=== PATIENT | male | born 1975 | race Caucasian/White ===

== ENCOUNTER → 2020-09-15 09:06 | Outpatient (BNVA) | payer OTHER, SELFPAY | PROVIDERS: PCP Internal Medicine; Referring Provider Internal Medicine; Visit Provider Surgery Vascular Surgery | DX: I83.11 Varicose veins of right lower extremity with inflammation (principal) | CPT/HCPCS: 99203 ==

== ENCOUNTER 2020-11-24 12:57 | Outpatient (REF) | payer OTHER, SELFPAY ==
--- NOTE | 2020-11-24 13:04 | US_ITS ---
EXAMINATION: RIGHT and LEFT LOWER EXTREMITY VENOUS ULTRASOUND (Reflux Exam) CLINICAL INDICATION: leg pain and varicose veins. COMPARISON: None. TECHNIQUE: Color flow triplex imaging and compression Doppler was performed to evaluate both the deep and the superficial systems bilaterally. To evaluate the superficial system, the examination was performed in the upright position. Color-flow Doppler ultrasound and compression ultrasound were utilized. In addition, maneuvers were utilized to demonstrate reflux. FINDINGS: 1. DEEP VENOUS ULTRASOUND OF THE RIGHT LOWER EXTREMITY: Respiratory variation, normal compression and augmented flow are noted in the right common femoral vein as well as the right popliteal vein and there is no evidence of deep venous thrombosis at these locations. There is no evidence of reflux in the deep system in either the common femoral vein or the popliteal vein. There is no evidence of a Zamora's cyst. 2. SUPERFICIAL ULTRASOUND WITH DOPPLER OF RIGHT LOWER EXTREMITY: The right great saphenous vein at the saphenofemoral junction measures 1 mm, at the mid thigh 4 mm, ahjxc-nja-uqov 7 mm, coeum-son-jrvl 6 mm, at mid calf 5 mm and at the ankle measures 6 mm. There is right greater saphenous vein reflux measuring maximum 2.9 seconds above the knee. The right small saphenous vein measures 3 mm and shows no reflux. There are varicosities in the thigh and calf that communicate with the right greater saphenous vein, largest measuring 4 mm. These do not demonstrate reflux. There are perforating there is a helicopter technician in the mid thigh that measures 4 mm and demonstrates 1 seconds reflux. There is a helicopter technician in the proximal calf that measures 3 mm and does not demonstrate reflux. 3. DEEP VENOUS ULTRASOUND OF THE LEFT LOWER EXTREMITY: Respiratory variation, normal compression and augmented flow are noted in the left common femoral vein as well as the left popliteal vein and there is no evidence of deep venous thrombosis at these locations. There is no evidence of reflux in the deep system in either the common femoral vein or the popliteal vein. . There is no evidence of a Zamora's cyst. 4. SUPERFICIAL ULTRASOUND WITH DOPPLER OF LEFT LOWER EXTREMITY: Left great saphenous vein at the saphenofemoral junction measures 9 mm, at the mid thigh 3 mm, jqnit-qrk-sybb 3 mm, vypmc-zkt-tmnm 3 mm, at mid calf 3 mm and at the ankle measures 3 mm. There is no reflux demonstrated in the left great saphenous vein. There is an accessory lateral greater saphenous vein that measures 3 to 4 mm and does not demonstrate reflux The left small saphenous vein measures 3-4 mm and shows no reflux. There are areas of wall thickening and increased echogenicity in the left small saphenous vein questionable for changes related to old thrombophlebitis. No acute thrombus is seen. There are varicosities at the knee and calf that measures maximum 3 mm do not demonstrate reflux. There is a helicopter technician in the mid thigh that measures 3 mm and does not demonstrate reflux. There is a helicopter technician in the proximal calf that measures 2 mm and does not demonstrate reflux. There is a prominent left inguinal lymph node. This demonstrates normal ultrasound morphology. This measures 4.1 x 0.9 x 3.4 cm sagittal AP and transverse dimension. US/US venous duplex LE BI IMPRESSION: 1. No evidence of reflux or thrombus in the common femoral veins or popliteal veins bilaterally. 2. Right greater saphenous vein reflux. Reflux in a helicopter technician in the mid right thigh measuring 1 second. No left saphenous vein reflux seen.
== END 2020-11-24 12:58 | disposition home or self-care (01) ==
LOC: HO.US 12:57
PROVIDERS: Visit Provider Surgery Vascular Surgery
DX: I83.893 Varicose veins of bilateral lower extremities with other complications (principal); I83.11 Varicose veins of right lower extremity with inflammation
CPT/HCPCS: 93970; 99212

== ENCOUNTER → 2020-11-26 09:21 | Outpatient (BNVA) | payer OTHER, SELFPAY | PROVIDERS: PCP Internal Medicine; Visit Provider Surgery Vascular Surgery | DX: I83.11 Varicose veins of right lower extremity with inflammation (principal) | CPT/HCPCS: 99212 ==

== ENCOUNTER → 2021-04-30 09:29 | Outpatient (BNVA) | payer OTHER, SELFPAY | PROVIDERS: PCP Internal Medicine; Visit Provider Surgery Vascular Surgery | DX: I83.11 Varicose veins of right lower extremity with inflammation (principal) | CPT/HCPCS: 36482 ==

== ENCOUNTER 2021-05-03 11:40 | Outpatient (REF) | payer OTHER, SELFPAY ==
--- NOTE | ~2021-05-03 | US_ITS ---
EXAMINATION: US VENOUS WITH DOPPLER LOWER EXTREMITY, RIGHT CLINICAL INFORMATION: Status post VenaSeal. COMPARISON: Bilateral venous ultrasound duplex lower extremities. TECHNIQUE: Ultrasound of the deep veins is performed from the hip to the calf with compression sonography and color and pulse Doppler assessment. Spectral analysis with color-flow imaging is performed. FINDINGS: There is a normal flow seen in the right common femoral vein. Status post VenaSeal. There is no flow seen in the right greater saphenous femoral vein measuring approximately 3.56 cm long segment. The right superficial femoral proximal, mid and distal veins are patent. The right popliteal, right posterior tibial and the calf veins are patent with normal respiratory variation visualized. The left common femoral vein is patent, as well. US/US venous duplex LE RT IMPRESSION: No DVT seen in the right lower extremity venous system. Status post VenaSeal, there is no flow visualized in the right greater saphenous vein approximately 3.56 cm long segment.
== END 2021-05-03 11:41 | disposition home or self-care (01) ==
LOC: HO.HMGCX 11:40
PROVIDERS: PCP Internal Medicine; Visit Provider Surgery Vascular Surgery
DX: M79.604 Pain in right leg (principal)
CPT/HCPCS: 93971

== ENCOUNTER → 2021-05-10 15:31 | Outpatient (BNVA) | payer OTHER, SELFPAY | PROVIDERS: PCP Internal Medicine; Visit Provider Surgery Vascular Surgery | DX: I83.11 Varicose veins of right lower extremity with inflammation (principal) | CPT/HCPCS: 99212 ==

== ENCOUNTER → 2021-12-30 14:29 | Outpatient (BNVA) | payer OTHER, SELFPAY | PROVIDERS: PCP Internal Medicine; Referring Provider Internal Medicine; Visit Provider Surgery | DX: K40.90 Unilateral inguinal hernia, without obstruction or gangrene, not specified as recurrent (principal) | CPT/HCPCS: 99212 ==

== ENCOUNTER 2022-01-12 11:07 | Day surgery (SDC) | payer OTHER, SELFPAY ==
--- NOTE | 2022-01-11 14:33 | P.CONAN_ITS ---
Documented by User: Myriam Warren NP 01/11/22 14:39 HPI - Anesthesia Eval Consult details Narrative: 46yo M for Left Hernia Repair Inguinal with Mesh +ETOH per PCP [facility] Active Problems Active Problems: All Active Problems (Updated 01/04/22 @ 12:57 by Maria Elena Galicia MD) Erectile dysfunction (Acute) Encounter for general adult medical examination with abnormal findings (Acute) Obesity due to excess calories (Acute) Alcoholism (Acute) Hypertension, essential (Acute) DMII (diabetes mellitus, type 2) (Acute) Left inguinal hernia (Acute) Varicose veins of right lower extremity with inflammation (Acute) Past Medical History Medical History Diabetes Hypertension Family History Family History Maternal Grandfather History of colon cancer Maternal Grandmother History of breast cancer Surgical History Surgical History History of appendectomy (~1983) Social History Social History (Updated 01/12/22 @ 12:47 by Verenice Moise MD) Housing: House Alcohol intake: current Alcohol intake frequency: 3 or more drinks per day Patient Tobacco Use Status: Never used Tobacco e-Cigarette/Vaping Use: Never Used Use of substances other than those prescribed or required for medical reasons: No Substance Use Type: Marijuana Last Used Substance: Days (ago) Are you DNR?: No Advance Directives: No Advance Directives Information Provided: No Recently lost weight without trying: No Nutrition Risks: No Nutritional Risk Current occupational status: unemployed Meds Allergies Allergy/AdvReac Type Severity Reaction Status Date / Time No Known Allergies Allergy Verified 01/04/22 12:35 [No Known Allergies*] Exam Exam Date and Time: January 11, 2022 1433 Pertinent Lab Results Pertinent Lab Results: 12/2021 A1C = 8.9% Assessment and Plan Assessment Anesthesia Assessment: Chart Reviewed Documented by User: Verenice Moise MD 01/12/22 12:50 [facility] Active Problems Active Problems: All Active Problems (Updated 01/04/22 @ 12:57 by Maria Elena Galicia MD) Erectile dysfunction (Acute) Encounter for general adult medical examination with abnormal findings (Acute) Obesity due to excess calories (Acute) Alcoholism (Acute) Hypertension, essential (Acute) DMII (diabetes mellitus, type 2) (Acute) Left inguinal hernia (Acute) Varicose veins of right lower extremity with inflammation (Acute) Snoring. Never had sleep study Past Medical History Medical History Diabetes Hypertension Family History Family History Maternal Grandfather History of colon cancer Maternal Grandmother History of breast cancer Family history of problems with anesthesia: No Surgical History Surgical History History of appendectomy (~1983) History of Problems with Anesthesia: No Social History Social History (Updated 01/12/22 @ 12:47 by Verenice Moise MD) Housing: House Alcohol intake: current Alcohol intake frequency: 3 or more drinks per day Patient Tobacco Use Status: Never used Tobacco e-Cigarette/Vaping Use: Never Used Use of substances other than those prescribed or required for medical reasons: No Substance Use Type: Marijuana Last Used Substance: Days (ago) Are you DNR?: No Advance Directives: No Advance Directives Information Provided: No Recently lost weight without trying: No Nutrition Risks: No Nutritional Risk Current occupational status: unemployed Meds Allergies Allergy/AdvReac Type Severity Reaction Status Date / Time No Known Allergies Allergy Verified 01/04/22 12:35 [No Known Allergies*] Exam Height,Weight and Vital Signs: Height 6 ft Weight 115.666 kg Vital Signs Temp Pulse Resp BP Pulse Ox 01/12/22 11:16 97.2 F 62 16 133/90 H 97 Pertinent Lab Results Pertinent Lab Results: 12/2021 A1C = 8.9% Lab Results 01/12/22 01/12/22 01/12/22 Range/Units 11:23 11:23 11:44 WBC 8.9 (4.8-10.8) X10*3/uL RBC 5.31 (4.60-5.80) X10*6/uL Hgb 16.4 (14.0-18.0) g/dl Hct 46.3 (42.0-52.0) % MCV 87.2 (80.0-98.0) fL MCH 30.9 (27.0-33.0) pg MCHC 35.4 (31.0-36.0) g/dl RDW 12.7 (11.0-16.0) % Plt Count 255 (160-400) X10*3/uL MPV 8.7 L (9.4-12.4) fL Absolute Nucleated RBC 0.000 (0.0-0.012) X10*3/uL Nucleated RBC % (auto) 0.0 (0.0-0.2) /100WBC Sodium 136 (135-145) mmol/L Potassium 4.6 (3.3-5.1) mmol/L Chloride 101 (96-108) mmol/L Carbon Dioxide 26 (22-29) mmol/L Anion Gap 14 (12-20) BUN 10 (9-16) mg/dL Creatinine 0.83 (0.5-1.4) mg/dL Estim Creat Clear Calc 144.4 Estimated GFR > 60 POC Glucose 168 H (60-115) mg/dL Fasting Glucose 178 H (60-99) mg/dL Calcium 10.0 (8.4-10.2) mg/dL Total Bilirubin 2.0 H (0.0-1.0) mg/dL AST 28 (5-37) U/L ALT 43 H (0-40) U/L Alkaline Phosphatase 61 (39-117) U/L Total Protein 7.6 (6.5-8.0) g/dL Albumin 4.4 (3.5-5.0) g/dL Airway Mallampati Class: III TM Dist: >3cm Neck ROM: Full Loose/Missing/Broken Teeth: Yes (Some broken. Some missing ) Heart: RRR Lungs: CTAB Assessment and Plan Assessment Anesthesia Assessment: Anesthesia Plan Discussed Final Anesthetic Review Family History of Problems with Anesthesia: No History of Problems with Anesthesia: No NPO: Yes ASA Class: III Final Preanesthetic Review: No Changes in Pt Med Stat, Meds/Allgs Chart Reviewed, Consent Obtained/Reviewed and Anes Risks/Benef Reviewed Patient Risk: Intermediate Procedure Risk: Low Assessment/Block/Sedation in SS: Assess/Block/Sedation-SS Anesthetic Plan Anesthetic Plan: GA Disposition: Standard PACU
[2022-01-12] VITALS (16 sets, daily range): BP systolic 90–133; BP diastolic 52–90; PULSE 54–76; RESP 10–18; TEMP 36.2–36.3; O2SAT 94–100; BMI 34.5
[2022-01-12] MEDS: Lactated Ringers 1,000 ML 100 ML IVCONT (11:35)
[2022-01-12 11:37] LABS: Hematocrit 46.3 % (42.0-52.0); Hemoglobin 16.4 g/dl (14.0-18.0); Mean Corpuscular HGB Conc 35.4 g/dl (31.0-36.0); Mean Corpuscular Hemoglobin 30.9 pg (27.0-33.0); Mean Corpuscular Volume 87.2 fL (80.0-98.0); Mean Platelet Volume 8.7 fL (9.4-12.4); Platelet Count 255 X10*3/uL (160-400); Red Blood Count 5.31 X10*6/uL (4.60-5.80); Red Cell Distribution Width 12.7 % (11.0-16.0); White Blood Count 8.9 X10*3/uL (4.8-10.8)
[2022-01-12 11:47] LABS: Glucose, Whole Blood 168 mg/dL (60-115)
[2022-01-12 11:50] LABS: Alanine Aminotransferase 43 U/L (0-40); Albumin Level 4.4 g/dL (3.5-5.0); Alkaline Phosphatase 61 U/L (39-117); Anion Gap 14 (12-20); Aspartate Amino Transferase 28 U/L (5-37); Blood Urea Nitrogen 10 mg/dL (9-16); Carbon Dioxide 26 mmol/L (22-29); Chloride 101 mmol/L (96-108); Creatinine Clr Calc Pharmacy 144.4; Estimated Glomerular Filt Rate > 60; Glucose Fasting 178 mg/dL (60-99); Potassium 4.6 mmol/L (3.3-5.1); Sodium 136 mmol/L (135-145); Total Protein 7.6 g/dL (6.5-8.0)
--- NOTE | 2022-01-12 12:28 | MHC.SHP ---
Pre-Procedural Eval Section A Date of Service: 01/12/22 The patient is an INPATIENT: No Changes since office visit: Yes Patient answered all questions; No Cold of Flu in the past 2 weeks, No New Medical Problems and No Changes in Medication The History & Physical has been completed within 30 days and I have reviewed it.: Yes Section B Chief Complaint: Left Inguinal Hernia Allergies: Allergies Allergy/AdvReac Type Severity Reaction Status Date / Time No Known Allergies Allergy Verified 01/04/22 12:35 [No Known Allergies*] Plan Diagnosis/Plan: Unchanged I have reviewed the history and physical and performed a pertinent physical examination on my patient. No changes have occurred unless specified.
--- NOTE | 2022-01-12 14:19 | P.OP_ITS ---
Operative Note Operative Note Date of Service: 01/12/22 Narrative: Preoperative diagnosis:Left inguinal hernia Postoperative diagnosis: same Procedure: repair of left inguinal hernia Surgeon: Gigi Rachel MD Tobacco Stripping Machine Operator: Myriam Soliman PA-C Anesthesia: general LMA Indications for procedure: 46-year-old male with a long history of a left inguinal hernia which is increasing in size and causing discomfort Operative findings: very large sliding direct left inguinal hernia with complete disruption of the inguinal floor. Large extended PHS mesh used Specimen:none Estimated blood loss:20 mls Complications:none Procedure details: patient was brought to the OR and placed in a supine position. After administering general anesthesia the patient's abdomen was prepped with ChloraPrep and draped in a sterile fashion. A surgical time-out was called the consent confirmed. Patient received preoperative antibiotics and Venodyne boots were in place. Local anesthesia consisting of 0.5% Sensorcaine was infiltrated over the left inguinal ligament. An incision was made with the scalpel carried down through subcutaneous tissue. Incision was carried down to the extenal oblique aponurosis. Additional local was infiltrated below the external oblique aponeurosis. The aponeurosis was incised with a scalpel wide with the Metzenbaum scissors. Spermatic cord was very large due to a very large scrotal hernia. The cord was unable to be dissected from the surrounding i nguinal canal due to its size therefore the fibers of the cremasteric muscle were and the hernia sac free from the surrounding cord vessels. The vas deferens was identified and preserved. A sliding hernia was noted within the hernia sac. This was able to be reduced. The patient was subsequently found to have a very large direct inguinal hernia with total disruption of the abdominal floor at the inguinal canal. A large extended PHS mesh was then obtained. The circular underlay was placed into the large defect in the inguinal floor. The mesh was then deployed within the preperitoneal space. The overlay was then secured to the pubic tubercle conjoined tendon, shelving edge of the inguinal ligament and reflected edge of the external oblique aponeurosis laterally. A slit was made in the mesh in the mesh wrapped around the spermatic cord at the internal ring. This was then secured to the shelving edge of the inguinal ligament using the 0 Polysorb suture. Wounds were irrigated with saline solution and suctioned dry. External oblique aponeurosis was then closed using a running 2 0 Polysorb suture. Louie's fascia and dermis reapproximated using interrupted 3-0 Polysorb sutures. Skin was closed using a running subcuticular 4-0 Polysorb suture. Patient tolerated the procedure well. Sponge, instrument, and needle counts were reported as correct. Patient was transferred to PACU in stable condition.
[2022-01-12] MEDS: fentaNYL citrate/PF 100 MCG/2 ML VIAL 25 MCG IVPUSH (15:04)
[2022-01-12] MEDS: oxyCODONE HCl Immed Release 5 MG TABLET 10 MG PO (15:07)
== END 2022-01-12 17:09 | disposition home or self-care (01) ==
PROVIDERS: Nurse Practitioner; PCP Internal Medicine; Visit Provider Surgery
PROC: (CPT 49525; principal; 2022-01-12 12:30)
DX: K40.90 Unilateral inguinal hernia, without obstruction or gangrene, not specified as recurrent (principal); I10 Essential (primary) hypertension; E11.9 Type 2 diabetes mellitus without complications; Z79.84 Long term (current) use of oral hypoglycemic drugs; Z79.899 Other long term (current) drug therapy
CPT/HCPCS: 49525; 36415; 80053; 82947; 85027; C1781; J0690; J2250; J2405; J2550; J2765; J3010

== ENCOUNTER → 2022-01-18 13:47 | Outpatient (BNVA) | payer OTHER, SELFPAY | PROVIDERS: PCP Internal Medicine; Referring Provider Internal Medicine; Visit Provider Surgery | DX: Z48.815 Encounter for surgical aftercare following surgery on the digestive system (principal); Z87.19 Personal history of other diseases of the digestive system | CPT/HCPCS: 99212 ==

== ENCOUNTER 2023-07-11 11:47 | Outpatient (AMB) | payer OTHER, SELFPAY ==
[2023-07-11 11:54] VITALS: BP 162/96; PULSE 85; O2SAT 97; BMI 34.3
--- NOTE | 2023-07-11 11:54 | MHC.PC.OV ---
Vital Signs 07/11/23 11:54 Height 6 ft Weight 253 lb 2 oz BMI 34.3 BP 162/96 H Blood Pressure Location Lt brachial Position Sitting Pulse 85 Pulse Source Pulse Oximeter Pulse Oximetry (%) 97 Oxygen Delivery Method Room Air Intake Visit Reasons: Med Rifill Allergies No Known Allergies [No Known Allergies*] Allergy (Verified 07/11/23 11:55) Medication List - Last Reconciled 07/11/23 by Maria Elena Galicia MD amlodipine 5 mg PO DAILY 90 days atenolol 100 mg PO DAILY 90 days glipizide-metformin 5-500 mg 1 tab PO DAILY 90 days Tobacco use date assessed: 07/11/23 Dental Screening Dental Screen Date: 07/11/23 Did you have a dental visit in the last 12 months?: Yes Did you have a dental problem in the last 6 months where you did not have access to dental care?: No Was dental information given to patient?: No HPI Med Rifill HPI Details Patient is 47-year-old gentleman who was seen more than a year ago Came in today to have medication refills. Patient was supposed to be on amlodipine 5 mg and atenolol 100 mg for blood pressure He has not taken his medications in over 2 months. His blood pressure is 162/96 There is no headache no blurring of vision no chest pain or shortness of breath. Diabetes mellitus patient was on glipizide metformin 5-500 mg once a day which he has stop taking 2 months ago as well His hemoglobin A1c is 11.2 today. I am increasing the dose to 2 tablets in the morning and 212 hours later, medication refill sent Labs to be done fasting Patient need to lose weight his BMI is 34.3. We will be sending Glucometer for the patient he is to start taking sugar readings 1st thing in the morning and keep a log. Follow-up 3 months for labs and sugar. [facility] Medical History Diabetes Hypertension Surgical History History of appendectomy (~1983) Family History Maternal Grandfather History of colon cancer Maternal Grandmother History of breast cancer Social History Housing: House Alcohol intake: current Alcohol intake frequency: 3 or more drinks per day Patient Tobacco Use Status: Never used Tobacco e-Cigarette/Vaping Use: Never Used Substance Use Type: Marijuana Current occupational status: unemployed Cognitive needs: No Hearing needs: No Vision needs: Yes Questionnaire PHQ-9 Over the last 2 weeks, how often have you been bothered by any of the following problems? 1. Little interest or pleasure in doing things: not at all 2. Feeling down, depressed, or hopeless: not at all 3. Trouble falling or staying asleep, or sleeping too much: not at all 4. Feeling tired or having little energy: not at all 5. Poor appetite or overeating: not at all 6. Feeling bad about yourself - or that you are a failure or have let yourself or your family down: not at all 7. Trouble concentrating on things, such as reading the newspaper or watching television: not at all 8. Moving or speaking so slowly that other people could have noticed. Or the opposite - being so fidgety or restless that you have been moving around a lot more than usual: not at all 9. Thoughts that you would be better off or of hurting yourself in some way: not at all Total score: 0 Depression Screening Interpretation: Negative 73020 - PHQ-9 Billing: Yes Source: Developed by Drs. Den Jalloh, Cynthia Shelton, Rudi Dallas and colleagues, with an educational yanni from [employer]. Thrive Questionnaire Date Thrive assessed: 07/11/23 I am a: Patient What is your living situation today?: I have a steady place to live Within the past 12 months, did the food you bought not last and you didn't have the money to get more?: Sometimes True Within the past 12 months, did you worry whether your food would run out before you got money to buy more?: I choose not to answer this question Do you have trouble paying for medicines?: No Do you have trouble getting transportation to medical appointments?: No Do you have trouble paying your heating and electricity bill?: No Do you have trouble taking care of your child, family member or friend?: No Do you have trouble with day-to-day activities such as bathing, preparing meals, shopping, managing finances, etc.?: No Are you currently unemployed and looking for a job?: No Are you interested in more education?: No AUDIT C Alcohol Use Questionnaire (AUDIT-C) 1. How often do you have a drink containing alcohol?: 4 or more times a week 2. How many drinks containing alcohol do you have on a typical day when you are drinking?: 3 or 4 3. How often do you have six or more drinks on one occasion?: Never Total Score: 5 Score Reviewed/Action Taken: Yes CHRIS-7 AMB Questionnaire CHRIS-7 Date CHRIS - 7 assessed: 07/11/23 Feeling nervous, anxious, or on edge: 0 = Not at all Not being able to stop or control worryin = Not at all Worrying too much about different things: 0 = Not at all Trouble relaxin = Not at all Being so restless that it is hard to sit still: 0 = Not at all Becoming easily annoyed or irritable: 0 = Not at all Feeling afraid as if something awful might happen: 0 = Not at all Total CHRIS-7 score (0-4 normal; 5-9 mild; 10-14 moderate; 15-21 severe): 0 Source: Developed by Drs. Den Jalloh, Cynthia Shelton, Rudi Dallas and colleagues, with an educational yanni from [employer]. CHRIS-7 Assessment Billing CHRIS-7 Assessment Tool: CHRIS-7 Assessment 91794 Review of Systems Const Denies chills and Denies fever(s) ENT Denies epistaxis and Denies nasal discharge Card Denies chest pain Resp Denies chest congestion, Denies cough and Denies hemoptysis GI Denies diarrhea and Denies nausea Skin/Breast Denies rash Neuro Reports no additional complaints Psych Reports no additional complaints Endo Reports no additional complaints Physical exam (Primary Care) Vital Signs: Last Vital Signs Pulse 85 07/11/23 11:54 BP 162/96 H 07/11/23 11:54 Pulse Ox 97 07/11/23 11:54 Oxygen Delivery Method Room Air 07/11/23 11:54 BMI result Body Mass Index 34.3 Tobacco/Smoking Status: Tobacco use Status Tobacco use date assessed 07/11/23 07/11/23 11:56 Patient Tobacco Use Status Never used Tobacco 07/11/23 11:56 e-Cigarette/Vaping Use Never Used 07/11/23 11:56 PHQ-9: PHQ-9 Score PHQ-9: Total score 0 07/11/23 12:09 Depression Screening Interpretation: Negative Thrive Assessment: Date of Thrive Assessment Date Thrive assessed 07/11/23 07/11/23 12:08 Const General: cooperative, comfortable and no acute distress Orientation/consciousness: patient oriented x3 HENMT Head: Yes normocephalic Eyes General: appearance normal, both eyes and all related structures Neck Neck: Yes supple Resp Effort & Inspection: normal respiratory effort, no cough and no stridor Cardio Rhythm: regular rhythm Heart sounds: S1 normal heart sound present and S2 normal heart sound present Skin General skin exam: turgor normal Neuro General: patient oriented x3, tone normal and moves all extremities Extrem Right lower extremity: no edema Left lower extremity: no edema Results AMB Hemoglobin A1c AMB Hemoglobin A1c 11.2 % Last Edit by Pankaj Rob CMA on 07/11/23 12:03 Results Reviewed Results Reviewed: Laboratory Last Values Hgb A1c (Clinic) 11.2 % (4.0-6.0) H 07/11/23 12:01 Assessment and Plan Assessment & Plan (1) Uncontrolled diabetes mellitus: (2) Hypertension, essential: Code(s): I10 - Essential (primary) hypertension (3) Varicose veins of right lower extremity with inflammation: Code(s): I83.11 - Varicose veins of right lower extremity with inflammation (4) Obesity due to excess calories: Code(s): E66.09 - Other obesity due to excess calories Plan Patient is 47-year-old gentleman who was seen more than a year ago Came in today to have medication refills. Patient was supposed to be on amlodipine 5 mg and atenolol 100 mg for blood pressure He has not taken his medications in over 2 months. His blood pressure is 162/96 There is no headache no blurring of vision no chest pain or shortness of breath. Diabetes mellitus patient was on glipizide metformin 5-500 mg once a day which he has stop taking 2 months ago as well His hemoglobin A1c is 11.2 today. I am increasing the dose to 2 tablets in the morning and 212 hours later, medication refill sent Labs to be done fasting Patient need to lose weight his BMI is 34.3. We will be sending Glucometer for the patient he is to start taking sugar readings 1st thing in the morning and keep a log. Follow-up 3 months for labs and sugar. Orders: Orders Complete Blood Count Auto Diff Today E66.09 - Other obesity due to excess calories, I10 - Essential (primary) hypertension, I83.11 - Varicose veins of right lower extremity with inflammation Comprehensive [place]. Panel Fast Today E66.09 - Other obesity due to excess calories, I10 - Essential (primary) hypertension, I83.11 - Varicose veins of right lower extremity with inflammation Lipid Panel Today E66.09 - Other obesity due to excess calories, I10 - Essential (primary) hypertension, I83.11 - Varicose veins of right lower extremity with inflammation TSH reflex Free T4 Today E66.09 - Other obesity due to excess calories, I10 - Essential (primary) hypertension, I83.11 - Varicose veins of right lower extremity with inflammation AMB Hemoglobin A1c Today E11.9 - Type 2 diabetes mellitus without complications Medications: New [Glucometer] As directed 1 ea 0RF NS Changed From glipizide-metformin 5-500 mg 1 tab PO DAILY 90 days 90 tabs 0RF To glipizide-metformin 5-500 mg 2 tabs PO BID 360 tabs 0RF 90 days Refilled amlodipine 5 mg PO DAILY 90 tabs 0RF 90 days atenolol 100 mg PO DAILY 90 tabs 0RF 90 days I10 - Essential (primary) hypertension Coding Level of Care Code Est Pt Level 4 (08027) Diagnoses Uncontrolled diabetes mellitus Hypertension, essential I10 Varicose veins of right lower extremity with inflammation I83.11 Obesity due to excess calories E66.09 Additional Codes CHRIS-7 Assessment Billing - CHRIS-7 Assessment Tool: CHRIS-7 Assessment [id number] ([id number])
== END 2023-07-11 12:21 | disposition home or self-care (01) ==
LOC: HO.HMGC 11:47
PROVIDERS: PCP Internal Medicine; Visit Provider Internal Medicine
DX: I10 Essential (primary) hypertension (principal); E66.09 Other obesity due to excess calories; E11.9 Type 2 diabetes mellitus without complications; Z68.34 Body mass index [BMI] 34.0-34.9, adult; I83.11 Varicose veins of right lower extremity with inflammation
CPT/HCPCS: 83036; 99214

== ENCOUNTER 2024-03-29 07:23 | Outpatient (AMB) | payer OTHER, SELFPAY ==
--- NOTE | 2024-03-29 07:32 | MHC.PC.OV ---
Intake Visit Reasons: blood pressure medications Allergies No Known Allergies [No Known Allergies*] Allergy (Verified 03/29/24 07:32) Medication List - Last Reconciled 03/29/24 by Maria Elena Galicia MD amlodipine 5 mg PO DAILY atenolol 100 mg PO DAILY 30 days FreeStyle Lancets (lancets) TID Testing NS FreeStyle Lite Meter (blood-glucose meter) As directed NS FreeStyle Lite Strips (blood sugar diagnostic) TID Testing NS glipizide-metformin 5-500 mg 2 tabs PO BID 90 days [Glucometer As directed NS] Tobacco use date assessed: 03/29/24 Dental Screening Dental Screen Date: 07/11/23 HPI blood pressure medications HPI Details 48-year-old male, who was last seen June of last year, missed his appointment last month Diabetes mellitus uncontrolled, last hemoglobin A1c was above 11 in June New set of lab order placed to be done as soon as possible Patient is on glipizide metformin 5 500 mg 1 tablet in the morning and 1 at night He is supposed to be taking 2 tablets in the morning and 2 tablets at night, advised patient to increase the dose Patient says that his glucometer is not behaving and he does not know how to check his sugar We will teach him when he will return to office, patient was instructed to bring his glucometer with him Hypertension: He checked blood pressure while I was talking to him, and it is 131/87 Patient is taking amlodipine 5 mg and atenolol 100 mg Medications sent to the local pharmacy. Follow-up after the labs [facility] Medical History Hypertension Diabetes Surgical History History of appendectomy (~1983) Family History Maternal Grandfather History of colon cancer Maternal Grandmother History of breast cancer Social History Housing: House Alcohol intake: current Alcohol intake frequency: 3 or more drinks per day Patient Tobacco Use Status: Never used Tobacco e-Cigarette/Vaping Use: Never Used Substance Use Type: Marijuana Current occupational status: unemployed Cognitive needs: No Hearing needs: No Vision needs: Yes Questionnaire Thrive Questionnaire Date Thrive assessed: 07/11/23 CHRIS-7 AMB Questionnaire CHRIS-7 Date CHRIS - 7 assessed: 07/11/23 Source: Developed by Drs. Den Jalloh, Cynthia Shelton, Rudi Dallas and colleagues, with an educational yanni from [employer]. Review of Systems Const Denies chills and Denies fever(s) ENT Denies epistaxis and Denies nasal discharge Card Denies chest pain Resp Denies chest congestion, Denies cough and Denies hemoptysis GI Denies diarrhea and Denies nausea Skin/Breast Denies rash Neuro Reports no additional complaints Psych Reports no additional complaints Endo Reports no additional complaints Physical exam (Primary Care) Tobacco/Smoking Status: Tobacco use Status Tobacco use date assessed 03/29/24 03/29/24 07:33 Patient Tobacco Use Status Never used Tobacco 03/29/24 07:33 e-Cigarette/Vaping Use Never Used 03/29/24 07:33 Thrive Assessment: Date of Thrive Assessment Date Thrive assessed 07/11/23 03/29/24 07:33 Telehealth Telehealth Telehealth Platform: G[employer] Location of provider rendering services: practice address Location of patient: address on file Patient Identification confirmed using: Name, : Yes Telehealth method: video (Attempted) Patient verbally consented to treatment: Yes Patient verbally consented to billing insurance company: Yes Patient informed of any privacy concerns related to visit: Yes Minutes spent on Phone/Video with Pt.: 16 Assessment and Plan Assessment & Plan (1) Uncontrolled diabetes mellitus: Qualifiers: Diabetes mellitus type: type 2 Glycemic state: with hyperglycemia Qualified Code(s): E11.65 - Type 2 diabetes mellitus with hyperglycemia (2) Hypertension, essential: Code(s): I10 - Essential (primary) hypertension Plan 48-year-old male, who was last seen June of last year, missed his appointment last month Diabetes mellitus uncontrolled, last hemoglobin A1c was above 11 in June New set of lab order placed to be done as soon as possible Patient is on glipizide metformin 5 500 mg 1 tablet in the morning and 1 at night He is supposed to be taking 2 tablets in the morning and 2 tablets at night, advised patient to increase the dose Patient says that his glucometer is not behaving and he does not know how to check his sugar We will teach him when he will return to office, patient was instructed to bring his glucometer with him Hypertension: He checked blood pressure while I was talking to him, and it is 131/87 Patient is taking amlodipine 5 mg and atenolol 100 mg Medications sent to the local pharmacy. Follow-up after the labs Orders: Orders Complete Blood Count Auto Diff Today I10 - Essential (primary) hypertension LDL Cholesterol Direct Today I10 - Essential (primary) hypertension TSH reflex Free T4 Today I10 - Essential (primary) hypertension Hemoglobin A1c Today Comprehensive Met. Panel Today I10 - Essential (primary) hypertension Microalbumin, Random (w Creat) Today I10 - Essential (primary) hypertension Medications: Changed From atenolol 100 mg PO DAILY 30 days 30 tabs 0RF I10 - Essential (primary) hypertension To atenolol 100 mg PO DAILY 90 tabs 0RF 90 days I10 - Essential (primary) hypertension Refilled amlodipine 5 mg PO DAILY 90 tabs 0RF glipizide-metformin 5-500 mg 2 tabs PO BID 360 tabs 0RF 90 days Coding Level of Care Code Est Pt Level 4 (28826) Diagnoses Uncontrolled type 2 diabetes mellitus with hyperglycemia E11.65 Diabetes mellitus type: type 2 Glycemic state: with hyperglycemia Hypertension, essential I10
== END 2024-03-29 08:29 | disposition home or self-care (01) ==
LOC: HO.HMGC 07:23
PROVIDERS: PCP Internal Medicine; Visit Provider Internal Medicine
DX: E11.65 Type 2 diabetes mellitus with hyperglycemia (principal); I10 Essential (primary) hypertension
CPT/HCPCS: 99214

== ENCOUNTER 2024-05-29 13:29 | Outpatient (REF) | payer OTHER, SELFPAY ==
[2024-05-29 16:08] LABS: MANUAL DIFF FLAG NO
[2024-05-29 16:10] LABS: Basophils Absolute Auto 0.1 X10*3/uL (0.0-0.2); Basophils Percent Auto 0.7 % (0-2); Eosinophils Absolute Auto 0.3 X10*3/uL (0.0-0.4); Eosinophils Percent Auto 3.3 % (0-4); Hemoglobin 16.2 g/dl (14.0-18.0); Imm Gran Abs Auto 0.05 X10*3/uL (0.00-0.03); Imm Gran Pct Auto 0.6 % (0.0-0.4); Lymphocytes Absolute Auto 1.7 X10*3/uL (1.2-4.9); Lymphocytes Percent Auto 20.3 % (20-40); Mean Corpuscular Hemoglobin 32.5 pg (27.0-33.0); Mean Corpuscular Volume 90.2 fL (80.0-98.0); Mean Platelet Volume 9.1 fL (9.4-12.4); Monocytes Absolute Auto 0.4 X10*3/uL (0.1-1.2); Monocytes Percent Auto 4.9 % (2-11); Neutrophils Absolute Auto 5.8 x10*3/uL (2.0-8.3); Neutrophils Percent Auto 70.2 % (45-73); Platelet Count 213 X10*3/uL (160-400); Red Blood Count 4.99 X10*6/uL (4.60-5.80); Red Cell Distribution Width 12.8 % (11.0-16.0); White Blood Count 8.2 X10*3/uL (4.8-10.8)
[2024-05-29 16:33] LABS: Alanine Aminotransferase 72 U/L (0-40); Albumin Level 4.1 g/dL (3.5-5.0); Alkaline Phosphatase 63 U/L (39-117); Anion Gap 14 (12-20); Aspartate Amino Transferase 43 U/L (5-37); Bilirubin Total 1.8 mg/dL (0.0-1.0); Blood Urea Nitrogen 12 mg/dL (9-16); Calcium 9.8 mg/dL (8.4-10.2); Carbon Dioxide 28 mmol/L (22-29); Chloride 103 mmol/L (96-108); Estimated Glomerular Filt Rate > 60; Glucose Random 224 mg/dL (60-115); Potassium 3.7 mmol/L (3.3-5.1); Sodium 141 mmol/L (135-145)
[2024-05-29 16:34] LABS: Creatinine Urine 237.78 mg/dL; Microalbum/Creatinine Ratio Ur 13.4 ug/mg cr (<30)
[2024-05-29 16:37] LABS: Estimated Average Glucose 151 mg/dL; Hemoglobin A1c % 6.9 % (<6.0)
[2024-05-29 16:50] LABS: TSH reflex Free T4 2.37 uIU/mL (0.32-4.0)
[2024-05-31 11:03] LABS: LDL Cholesterol Direct 132 mg/dL (<100)
== END 2024-05-29 13:30 | disposition home or self-care (01) ==
LOC: HO.HMGCLDS 13:29
PROVIDERS: PCP Internal Medicine; Visit Provider Internal Medicine
DX: I10 Essential (primary) hypertension (principal); E11.9 Type 2 diabetes mellitus without complications
CPT/HCPCS: 36415; 80053; 82043; 82570; 83036; 83721; 84443; 85025

== ENCOUNTER 2024-07-09 13:41 | Outpatient (AMB) | payer OTHER, SELFPAY ==
[2024-07-09 13:42] VITALS: BP 138/80; PULSE 70; O2SAT 97; BMI 35.3
--- NOTE | 2024-07-09 13:42 | A.OFFPC_ITS ---
Vital Signs 07/09/24 13:42 Height 6 ft Weight 260 lb 8 oz BMI 35.3 BP 138/80 Blood Pressure Location Rt brachial Position Sitting Pulse 70 Pulse Source Pulse Oximeter Pulse Oximetry (%) 97 Oxygen Delivery Method Room Air Intake Visit Reasons: 3 Month F/u~ Allergies No Known Allergies [No Known Allergies*] Allergy (Verified 07/09/24 13:45) Medication List - Last Reconciled 07/09/24 by Maria Elena Galicia MD amlodipine 5 mg PO DAILY atenolol 100 mg PO DAILY 90 days FreeStyle Lancets (lancets) TID Testing NS FreeStyle Lite Meter (blood-glucose meter) As directed NS FreeStyle Lite Strips (blood sugar diagnostic) TID Testing NS glipizide-metformin 5-500 mg 2 tabs PO BID 90 days [Glucometer As directed NS] Tobacco use date assessed: 07/09/24 Dental Screening Dental Screen Date: 07/09/24 Did you have a dental visit in the last 12 months?: No Did you have a dental problem in the last 6 months where you did not have access to dental care?: No Was dental information given to patient?: Patient has dentist HPI 3 Month F/u~ HPI Details Patient is a 48-year-old gentleman came in today for his regular follow-up appointment Patient labs done 05/29/2024 His hemoglobin A1c came back at 6.9% Patient is on glipizide metformin 5 500 mg 2 tablets 2 times a day and is tolerating medication Hypertension: Continue amlodipine 5 mg and atenolol 100 mg daily, blood pressure is 138/80 today Patient says that few weeks ago in [place] he fell and had fracture of his right rib he was evaluated in emergency room Patient is better now in his able to take deep breath without any pain BMI is elevated need to lose weight Follow-up 4 months labs are needed before visit. [facility] Medical History Hypertension Diabetes Surgical History History of appendectomy (~1983) Family History Maternal Grandfather History of colon cancer Maternal Grandmother History of breast cancer Social History Housing: House Alcohol intake: current Alcohol intake frequency: 3 or more drinks per day Patient Tobacco Use Status: Never used Tobacco e-Cigarette/Vaping Use: Never Used Substance Use Type: Marijuana service: No Current occupational status: unemployed Cognitive needs: No Hearing needs: No Vision needs: Yes Questionnaire Thrive Questionnaire Date Thrive assessed: 07/09/24 I am a: Patient What is your living situation today?: I do not have a steady places to live I am temporarily staying with others Within the past 12 months, did the food you bought not last and you didn't have the money to get more?: Often true Within the past 12 months, did you worry whether your food would run out before you got money to buy more?: Often true Do you have trouble paying for medicines?: Yes Do you have trouble getting transportation to medical appointments?: Yes Do you have trouble paying your heating and electricity bill?: Yes Do you have trouble taking care of your child, family member or friend?: I choose not to answer this question Do you have trouble with day-to-day activities such as bathing, preparing meals, shopping, managing finances, etc.?: I choose not to answer this question Are you currently unemployed and looking for a job?: I choose not to answer this question Are you interested in more education?: I choose not to answer this question Please select the resources that you would like help with: None Currently or been in a relationship where the following occur: I choose not to answer THRIVE Score: 5 AUDIT C Alcohol Use Questionnaire (AUDIT-C) 1. How often do you have a drink containing alcohol?: 4 or more times a week 2. How many drinks containing alcohol do you have on a typical day when you are drinking?: 10 or more 3. How often do you have six or more drinks on one occasion?: Daily or almost daily Total Score: 12 Score Reviewed/Action Taken: Yes CHRIS-7 AMB Questionnaire CHRIS-7 Date CHRIS - 7 assessed: 07/09/24 Feeling nervous, anxious, or on edge: 3 = Nearly every day Not being able to stop or control worryin = Nearly every day Worrying too much about different things: 3 = Nearly every day Trouble relaxin = Nearly every day Being so restless that it is hard to sit still: 3 = Nearly every day Becoming easily annoyed or irritable: 3 = Nearly every day Feeling afraid as if something awful might happen: 3 = Nearly every day Total CHRIS-7 score (0-4 normal; 5-9 mild; 10-14 moderate; 15-21 severe): 21 Source: Developed by Drs. Den Jalloh, Cynthia Shelton, Rudi Dallas and colleagues, with an educational yanni from [employer]. CHRIS-7 Assessment Billing CHRIS-7 Assessment Tool: CHRIS-7 Assessment 30185 Review of Systems Const Denies chills and Denies fever(s) ENT Denies epistaxis and Denies nasal discharge Card Denies chest pain Resp Denies chest congestion, Denies cough and Denies hemoptysis GI Denies diarrhea and Denies nausea Skin/Breast Denies rash Neuro Reports no additional complaints Psych Reports no additional complaints Endo Reports no additional complaints Physical exam (Primary Care) Vital Signs: Last Vital Signs Pulse 70 07/09/24 13:42 BP 138/80 07/09/24 13:42 Pulse Ox 97 07/09/24 13:42 Oxygen Delivery Method Room Air 07/09/24 13:42 BMI result Body Mass Index 35.3 Tobacco/Smoking Status: Tobacco use Status Tobacco use date assessed 07/09/24 07/09/24 13:45 Patient Tobacco Use Status Never used Tobacco 07/09/24 13:45 e-Cigarette/Vaping Use Never Used 07/09/24 13:45 Thrive Assessment: Date of Thrive Assessment Date Thrive assessed 07/09/24 07/09/24 13:45 Currently or been in a relationship where the following occur: I choose not to answer Const General: cooperative, comfortable and no acute distress Orientation/consciousness: patient oriented x3 HENMT Head: Yes normocephalic Eyes General: appearance normal, both eyes and all related structures Neck Neck: Yes supple Resp Effort & Inspection: normal respiratory effort, no cough and no stridor Cardio Rhythm: regular rhythm Heart sounds: S1 normal heart sound present and S2 normal heart sound present Skin General skin exam: turgor normal Neuro General: patient oriented x3, tone normal and moves all extremities Extrem Right lower extremity: no edema Left lower extremity: no edema Assessment and Plan Assessment & Plan (1) DMII (diabetes mellitus, type 2): Code(s): E11.9 - Type 2 diabetes mellitus without complications Qualifiers: Diabetes mellitus complication status: without complication Diabetes mellitus [facility] insulin use: unspecified intermediate accountant insulin use status Qual ified Code(s): E11.9 - Type 2 diabetes mellitus without complications (2) Hypertension, essential: Code(s): I10 - Essential (primary) hypertension (3) Obesity due to excess calories: Code(s): E66.09 - Other obesity due to excess calories Qualifiers: Body mass index: BMI 35.0-35.9 Obesity classification: adult class 2 (BMI 35 - 39.9) Serious obesity comorbidity presence: with serious comorbidity Qualified Code(s): E66.01 - Morbid (severe) obesity due to excess calories; Z68.35 - Body mass index [BMI] 35.0-35.9, adult Plan Patient is a 48-year-old gentleman came in today for his regular follow-up appointment Patient labs done 05/29/2024 His hemoglobin A1c came back at 6.9% Patient is on glipizide metformin 5 500 mg 2 tablets 2 times a day and is tolerating medication Hypertension: Continue amlodipine 5 mg and atenolol 100 mg daily, blood pressure is 138/80 today Patient says that few weeks ago in [place] he fell and had fracture of his right rib he was evaluated in emergency room Patient is better now in his able to take deep breath without any pain BMI is elevated need to lose weight Follow-up 4 months labs are needed before visit. Orders: Orders Hemoglobin A1c 3 Months E11.9 - Type 2 diabetes mellitus without complications, I10 - Essential (primary) hypertension Comprehensive Met. Panel 3 Months E11.9 - Type 2 diabetes mellitus without complications, I10 - Essential (primary) hypertension Coding Level of Care Code Est Pt Level 3 (05971) Diagnoses Type 2 diabetes mellitus without complication, unspecified whether [facility] insulin use E11.9 Diabetes mellitus complication status: without complication Diabetes mellitus intermediate accountant insulin use: unspecified [facility] insulin use status Hypertension, essential I10 Class 2 severe obesity due to excess calories with serious comorbidity and body mass index (BMI) of 35.0 to 35.9 in adult E66.01; Z68.35 Body mass index: BMI 35.0-35.9 Obesity classification: adult class 2 (BMI 35 - 39.9) Serious obesity comorbidity presence: with serious comorbidity Additional Codes CHRIS-7 Assessment Billing - CHRIS-7 Assessment Tool: CHRIS-7 Assessment [id number] ([id number])
== END 2024-07-09 14:02 | disposition home or self-care (01) ==
PROVIDERS: PCP Internal Medicine; Visit Provider Internal Medicine
DX: E11.9 Type 2 diabetes mellitus without complications (principal); I10 Essential (primary) hypertension; E66.01 Morbid (severe) obesity due to excess calories; Z68.35 Body mass index [BMI] 35.0-35.9, adult
CPT/HCPCS: 99213

== ENCOUNTER 2024-11-13 13:14 | Outpatient (AMB) | payer OTHER, SELFPAY ==
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
[2024-11-13 13:19] VITALS: BP 138/86; PULSE 76; O2SAT 96; BMI 35.0
== END 2024-11-13 13:34 | disposition home or self-care (01) ==
PROVIDERS: PCP Internal Medicine; Visit Provider Internal Medicine
DX: M25.551 Pain in right hip (principal); E11.9 Type 2 diabetes mellitus without complications; I10 Essential (primary) hypertension; E66.01 Morbid (severe) obesity due to excess calories; Z68.35 Body mass index [BMI] 35.0-35.9, adult; D17.9 Benign lipomatous neoplasm, unspecified

== ENCOUNTER → 2024-11-13 13:14 | Outpatient (BNVA) | payer OTHER, SELFPAY | PROVIDERS: PCP Internal Medicine; Visit Provider Internal Medicine | DX: M25.551 Pain in right hip (principal); E11.9 Type 2 diabetes mellitus without complications; I10 Essential (primary) hypertension; E66.01 Morbid (severe) obesity due to excess calories; Z68.35 Body mass index [BMI] 35.0-35.9, adult; D17.9 Benign lipomatous neoplasm, unspecified | CPT/HCPCS: 99212 ==

== ENCOUNTER 2024-11-14 12:55 | Outpatient (REF) | payer OTHER, SELFPAY ==
[2024-11-14 16:52] LABS: Estimated Average Glucose 200 mg/dL; Hemoglobin A1C 279.5585 umol/L; Hemoglobin A1c % 8.6 % (<6.0); Total Hemoglobin (HGBA1C) 3965.4156 umol/L
[2024-11-14 17:24] LABS: Alanine Aminotransferase 34 U/L (0-40); Alkaline Phosphatase 63 U/L (39-117); Anion Gap 11 (12-20); Aspartate Amino Transferase 24 U/L (5-37); Bilirubin Total 1.2 mg/dL (0.0-1.0); Blood Urea Nitrogen 10 mg/dL (9-16); Calcium 9.4 mg/dL (8.4-10.2); Carbon Dioxide 27 mmol/L (22-29); Chloride 103 mmol/L (96-108); Estimated Glomerular Filt Rate > 60; Glucose Random 186 mg/dL (60-115); Potassium 4.1 mmol/L (3.3-5.1); Sodium 137 mmol/L (135-145); Total Protein 7.1 g/dL (6.5-8.0)
== END 2024-11-14 12:56 | disposition home or self-care (01) ==
LOC: HO.HMGCX 12:55
PROVIDERS: PCP Internal Medicine; Visit Provider Internal Medicine
DX: E11.9 Type 2 diabetes mellitus without complications (principal); I10 Essential (primary) hypertension; M25.551 Pain in right hip
CPT/HCPCS: 36415; 73502; 80053; 83036

== ENCOUNTER 2025-04-18 14:39 | Outpatient (AMB) | payer OTHER, SELFPAY ==
--- NOTE | 2025-04-18 14:43 | A.OFFPC_ITS ---
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: No Accompanied by: Self / Same As Patient Allergies No Known Allergies [No Known Allergies*] Allergy (Verified 04/18/25 14:44) Medication List - Last Reconciled 04/18/25 by Maria Elena Galicia MD amlodipine 5 mg PO DAILY atenolol 100 mg PO DAILY 90 days FreeStyle Lancets (lancets) TID Testing NS FreeStyle Lite Meter (blood-glucose meter) As directed NS FreeStyle Lite Strips (blood sugar diagnostic) USE DIRECTED TWICE A DAY NEEDED NS glipizide-metformin 5-500 mg 2 tabs PO BID 90 days [Glucometer As directed NS] naproxen 500 mg PO BID PRN Tobacco use date assessed: 11/13/24 Dental Screening Dental Screen Date: 04/18/25 Did you have a dental visit in the last 12 months?: Yes Did you have a dental problem in the last 6 months where you did not have access to dental care?: No Was dental information given to patient?: Patient has dentist HPI follow up/missed shaun 04/15 HPI Details History - The patient is a 49-year-old male pres enting with concerns regarding hypertension, diabetes mellitus, and right hip pain. - He is currently managing Essential Hyp ertension with amlodipine 5 mg and atenolol 108 mg, with blood pressure readings generally around 136/82, although it occasionally fluctuates based on dietary intake and lifestyle factors. - He reports infrequent monitoring of bl ood pressure at home and has not experienced any significant related symptoms such as headaches, swelling, or visual changes. A slight progression of blurriness in vision was mentioned, but no recent eye examination has been conducted. - The patient's Type 2 Diabetes Mellitus is managed with glipizide-metformin 5/500 mg tablets taken twice a day, though adherence to this regimen is inconsistent due to aversion to taking too much medication. His A1c was noted to have increased from 6.9 to 8.6 as per a test conducted in October. - Concerning his hip, he experiences per sistent pain associated with Osteoarthritis diagnosed by x-ray findings, particularly affecting the right hip and pelvic bone. This condition may be attributed to previous martial arts activities, with noted involvement in kickboxing and karate. - Lifestyle factors include variable t, occasional alcohol consumption, and inadequate sleep patterns, which may contribute to the fluctuations in his conditions. Problem List - Essential Hypertension - Type 2 Diabetes Mellitus - Osteoarthritis of the Right Hip Patient Instructions - Monitor blood pressure at home more re gularly and report consistent elevations. - Take amlodipine 10 mg daily - Schedule and attend an eye examination to assess visual changes. - Adhere to the diabetes medication [place] men as prescribed and ensure blood sugar monitoring with the help of his daughter. - Have blood work done as previously ord ered, and await contact regarding any adjustments based on A1c results. - Attend scheduled follow-up appointment s with an credit operations specialist for hip pain management and consider options such as corticosteroid injections. - Make lifestyle modifications such as d ietary changes, reduced alcohol consumption, and ensuring adequate sleep to aid in managing hypertension and diabetes symptoms. Review of Systems - General: No fever no chills - Neurological: No headaches no dizziness - Ear nose throat: No sore throat no hearing difficulty no ear pain - Cardiovascular: No syncope, no chest pain, no palpitations - Gastrointestinal: No nausea vomiting or diarrhea - Endocrine: No polyuria polydipsia no heat intolerance - Genitourinary: No dysuria , no blood in urine Physical Exam General: No acute distress HEENT: No acute findings Neck: Supple Respiratory system: Able to talk in full sentences, no audible wheeze, lungs are clear Cardiovascular: S1-S2 regular in rate and rhythm Gastrointestinal: No pain Extremities: No new findings 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 awake oriented x3 motor sensory intact Skin: Normal turgor, a little sweaty PFSH Medical History Hypertension Diabetes Surgical History History of appendectomy (~1983) Family History Maternal Grandfather History of colon cancer Maternal Grandmother History of breast cancer Social History Housing: House Alcohol intake: current Alcohol intake frequency: 3 or more drinks per day Patient Tobacco Use Status: Never used Tobacco e-Cigarette/Vaping Use: Never Used Substance Use Type: Marijuana service: No Current occupational status: unemployed Cognitive needs: No Hearing needs: No Vision needs: Yes Questionnaire PHQ-9 Over the last 2 weeks, how often have you been bothered by any of the following problems? 1. Little interest or pleasure in doing things: nearly every day 2. Feeling down, depressed, or hopeless: not at all 3. Trouble falling or staying asleep, or sleeping too much: not at all 4. Feeling tired or having little energy: several days 5. Poor appetite or overeating: not at all 6. Feeling bad about yourself - or that you are a failure or have let yourself or your family down: not at all 7. Trouble concentrating on things, such as reading the newspaper or watching t elevision: not at all 8. Moving or speaking so slowly that other people could have noticed. Or the opposite - being so fidgety or restless that you have been moving around a lot more than usual: not at all 9. Thoughts that you would be better off or of hurting yourself in some way: not at all Total score: 4 Depression Screening Interpretation: Negative Depression Screening Done: Yes 88446 - PHQ-9 Billing: Yes Source: Developed by Drs. Den Jalloh, Cynthia Shelton, Rudi Dallas and colleagues, with an educational yanni from [employer]. Thrive Questionnaire Date Thrive assessed: 04/18/25 I am a: Patient What is your living situation today?: I have a steady place to live Within the past 12 months, did the food you bought not last and you didn't have the money to get more?: I choose not to answer this question Within the past 12 months, did you worry whether your food would run out before you got money to buy more?: Never true Do you have trouble paying for medicines?: No Do you have trouble getting transportation to medical appointments?: No Do you have trouble paying your heating and electricity bill?: No Do you have trouble taking care of your child, family member or friend?: No Do you have trouble with day-to-day activities such as bathing, preparing meals, shopping, managing finances, etc.?: No Are you currently unemployed and looking for a job?: I choose not to answer this question Are you interested in more education?: No Please select the resources that you would like help with: None Currently or been in a relationship where the following occur: I choose not to answer THRIVE Score: 0 AUDIT C Alcohol Use Questionnaire (AUDIT-C) 1. How often do you have a drink containing alcohol?: 2-3 times a week 2. How many drinks containing alcohol do you have on a typical day when you are drinking?: 1 or 2 3. How often do you have six or more drinks on one occasion?: Less than monthly Total Score: 4 Score Reviewed/Action Taken: Yes CHRIS-7 AMB Questionnaire CHRIS-7 Date CHRIS - 7 assessed: 04/18/25 Feeling nervous, anxious, or on edge: 0 = Not at all Not being able to stop or control worryin = Not at all Worrying too much about different things: 0 = Not at all Trouble relaxin = Not at all Being so restless that it is hard to sit still: 0 = Not at all Becoming easily annoyed or irritable: 1 = Several days Feeling afraid as if something awful might happen: 0 = Not at all Total CHRIS-7 score (0-4 normal; 5-9 mild; 10-14 moderate; 15-21 severe): 1 Source: Developed by Drs. Den Jalloh, Cynthia Shelton, Rudi Dallas and colleagues, with an educational yanni from [employer]. CHRIS-7 Assessment Billing CHRIS-7 Assessment Tool: CHRIS-7 Assessment 05846 Physical exam (Primary Care) Vital Signs: Last Vital Signs Pulse 74 04/18/25 14:44 BP 136/82 04/18/25 14:44 Pulse Ox 98 04/18/25 14:44 Oxygen Delivery Method Room Air 04/18/25 14:44 BMI result Body Mass Index 34.7 Tobacco/Smoking Status: Tobacco use Status Tobacco use date assessed 11/13/24 04/18/25 14:45 Patient Tobacco Use Status Never used Tobacco 04/18/25 14:45 e-Cigarette/Vaping Use Never Used 04/18/25 14:45 PHQ-9: PHQ-9 Score PHQ-9: Total score 4 04/18/25 15:01 Depression Screening Interpretation: Negative Thrive Assessment: Date of Thrive Assessment Date Thrive assessed 04/18/25 04/18/25 14:45 Currently or been in a relationship where the following occur: I choose not to answer Coding Level of Care Code Est Pt Level 4 (99421) Complex EM visit Add On G2211 Diagnoses Type 2 diabetes mellitus without complication, unspecified whether prison insulin use E11.9 Diabetes mellitus prison insulin use: unspecified 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 insulin 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 status Diabetes mellitus complication status: without complication Hypertension, essential I10 Blurring of vision H53.8 Hip pain, right M25.551 Primary osteoarthritis of right hip M16.11 Osteoarthritis type: primary Class 2 severe obesity due to excess calories with serious comorbidity and body mass index (BMI) of 35.0 to 35.9 in adult E66.01; Z68.35 Obesity classification: adult class 2 (BMI 35 - 39.9) Serious obesity comorbidity presence: with serious comorbidity Body mass index: BMI 35.0-35.9 Additional Codes CHRIS-7 Assessment Billing - CHRIS-7 Assessment Tool: CHRIS-7 Assessment 14941 ([id number]) PHQ-9 - 17962 - PHQ-9 Billing: Yes ([id number]) Assessment & Plan Assessment & Plan (1) DMII (diabetes mellitus, type 2): Code(s): E11.9 - Type 2 diabetes mellitus without complications Category: Medical Qualifiers: Diabetes mellitus prison insulin use: unspecified 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 insulin use status Diabetes mellitus complication status: without complication Qualified Code(s): E11.9 - Type 2 diabetes mellitus without complications (2) Hypertension, essential: Code(s): I10 - Essential (primary) hypertension Category: Medical (3) Blurring of vision: Code(s): H53.8 - Other visual disturbances Category: Medical (4) Hip pain, right: Code(s): M25.551 - Pain in right hip Category: Medical (5) Osteoarthritis of right hip: Code(s): M16.11 - Unilateral primary osteoarthritis, right hip Category: Medical Qualifiers: Osteoarthritis type: primary Qualified Code(s): M16.11 - Unilateral primary osteoarthritis, right hip (6) Obesity due to excess calories: Code(s): E66.09 - Other obesity due to excess calories Category: Medical Qualifiers: Obesity classification: adult class 2 (BMI 35 - 39.9) Serious obesity comorbidity presence: with serious comorbidity Body mass index: BMI 35.0-35.9 Qualified Code(s): E66.01 - Morbid (severe) obesity due to excess calories; Z68.35 - Body mass index [BMI] 35.0-35.9, adult Plan History - The patient is a 49-year-old male presenting with concerns regarding hypertension, diabetes mellitus, and right hip pain. - He is currently managing Essential Hypertension with amlodipine 5 mg and atenolol 108 mg, with blood pressure readings generally around 136/82, although it occasionally fluctuates based on dietary intake and lifestyle factors. - He reports infrequent monitoring of blood pressure at home and has not experienced any significant related symptoms such as headaches, swelling, or visual changes. A slight progression of blurriness in vision was mentioned, but no recent eye examination has been conducted. - The patient's Type 2 Diabetes Mellitus is managed with glipizide-metformin 5/500 mg tablets taken twice a day, though adherence to this regimen is inconsistent due to aversion to taking too much medication. His A1c was noted to have increased from 6.9 to 8.6 as per a test conducted in October. - Concerning his hip, he experiences persistent pain associated with Osteoarthritis diagnosed by x-ray findings, particularly affecting the right hip and pelvic bone. This condition may be attributed to previous martial arts activities, with noted involvement in kickboxing and karate. - Lifestyle factors include variable diet, occasional alcohol consumption, and inadequate sleep patterns, which may contribute to the fluctuations in his conditions. Problem List - Essential Hypertension - Type 2 Diabetes Mellitus - Osteoarthritis of the Right Hip Patient Instructions - Monitor blood pressure at home more regularly and report consistent elevations. - Take amlodipine 10 mg daily - Schedule and attend an eye examination to assess visual changes. - Adhere to the diabetes medication regimen as prescribed and ensure blood sugar monitoring with the help of his daughter. - Have blood work done as previously ordered, and await contact regarding any adjustments based on A1c results. - Attend scheduled follow-up appointments with an credit operations specialist for hip pain management and consider options such as corticosteroid injections. - Make lifestyle modifications such as dietary changes, reduced alcohol con sumption, and ensuring adequate sleep to aid in managing hypertension and diabetes symptoms. Orders: Orders Hemoglobin A1c Today E11.9 - Type 2 diabetes mellitus without complications, I10 - Essential (primary) hypertension Complete Blood Count Auto Diff Today E11.9 - Type 2 diabetes mellitus without complications, I10 - Essential (primary) hypertension Comprehensive Met. Panel Today E11.9 - Type 2 diabetes mellitus without complic ations, I10 - Essential (primary) hypertension LDL Cholesterol Direct Today E11.9 - Type 2 diabetes mellitus without complications, I10 - Essential (primary) hypertension Referrals Orthopedics Referral M16.11 - Unilateral primary osteoarthritis, right hip, M25.551 - Pain in right hip Ophthalmology Referral H53.8 - Other visual disturbances Medications: Changed From amlodipine 5 mg PO DAILY 90 tabs 0RF To amlodipine 10 mg PO DAILY 90 tabs 0RF
[2025-04-18 14:44] VITALS: BP 136/82; PULSE 74; O2SAT 98; BMI 34.7
== END 2025-04-18 15:02 | disposition home or self-care (01) ==
LOC: HO.HMCC 14:40
PROVIDERS: PCP Internal Medicine; Visit Provider Internal Medicine
DX: E11.9 Type 2 diabetes mellitus without complications (principal); E66.01 Morbid (severe) obesity due to excess calories; Z68.35 Body mass index [BMI] 35.0-35.9, adult; H53.8 Other visual disturbances; I10 Essential (primary) hypertension; M25.551 Pain in right hip; M16.11 Unilateral primary osteoarthritis, right hip

== ENCOUNTER 2025-04-18 14:39 | Outpatient (REF) | payer OTHER, SELFPAY ==
[2025-04-18 16:24] LABS: MANUAL DIFF FLAG NO
[2025-04-18 16:39] LABS: Basophils Absolute Auto 0.1 X10*3/uL (0.0-0.2); Basophils Percent Auto 0.7 % (0-2); Eosinophils Absolute Auto 0.4 X10*3/uL (0.0-0.4); Eosinophils Percent Auto 6.4 % (0-4); Hematocrit 43.9 % (42.0-52.0); Hemoglobin 15.7 g/dl (14.0-18.0); Imm Gran Abs Auto 0.03 X10*3/uL (0.00-0.03); Imm Gran Pct Auto 0.4 % (0.0-0.4); Lymphocytes Absolute Auto 1.9 X10*3/uL (1.2-4.9); Lymphocytes Percent Auto 27.7 % (20-40); Mean Corpuscular HGB Conc 35.8 g/dl (31.0-36.0); Mean Corpuscular Hemoglobin 31.3 pg (27.0-33.0); Mean Corpuscular Volume 87.6 fL (80.0-98.0); Mean Platelet Volume 8.7 fL (9.4-12.4); Monocytes Absolute Auto 0.4 X10*3/uL (0.1-1.2); Monocytes Percent Auto 5.8 % (2-11); Platelet Count 177 X10*3/uL (160-400); Red Blood Count 5.01 X10*6/uL (4.60-5.80); Red Cell Distribution Width 12.8 % (11.0-16.0); White Blood Count 6.7 X10*3/uL (4.8-10.8)
[2025-04-18 17:06] LABS: Alanine Aminotransferase 30 U/L (0-40); Albumin Level 4.2 g/dL (3.5-5.0); Alkaline Phosphatase 76 U/L (39-117); Anion Gap 14 (12-20); Aspartate Amino Transferase 30 U/L (5-37); Bilirubin Total 1.1 mg/dL (0.0-1.0); Blood Urea Nitrogen 15 mg/dL (9-16); Calcium 9.4 mg/dL (8.4-10.2); Carbon Dioxide 28 mmol/L (22-29); Chloride 101 mmol/L (96-108); Estimated Average Glucose 174 mg/dL; Estimated Glomerular Filt Rate > 60; Glucose Random 297 mg/dL (60-115); Hemoglobin A1c % 7.7 % (<6.0); Potassium 4.3 mmol/L (3.3-5.1); Sodium 139 mmol/L (135-145); Total Protein 7.5 g/dL (6.5-8.0)
[2025-04-19 12:38] LABS: LDL Cholesterol Direct 126 mg/dL (<100)
== END 2025-04-18 14:40 | disposition home or self-care (01) ==
LOC: HO.HMGCLDS 14:39
PROVIDERS: PCP Internal Medicine; Visit Provider Internal Medicine
DX: E11.9 Type 2 diabetes mellitus without complications (principal); I10 Essential (primary) hypertension; H53.8 Other visual disturbances; M25.551 Pain in right hip; M16.11 Unilateral primary osteoarthritis, right hip; E66.01 Morbid (severe) obesity due to excess calories; Z68.35 Body mass index [BMI] 35.0-35.9, adult
CPT/HCPCS: 36415; 80053; 83036; 83721; 85025; 96127; 99212